=== PATIENT | female | born 1960 | race African-American/Black ===

== ENCOUNTER 2017-06-20 13:50 | Inpatient (IN) ==
[2017-06-21] MEDS ORDERED: *HR* OxyCODONE Immed Rel 5 MG TABLET PO PRN (11:32)
--- NOTE | 2017-06-21 13:27 | Internal Med History&Physical ---
Date of Encounter: 06/21/17 Time of Encounter: 13:27 Assessment and Plan (1) Status post total hip replacement, right Current visit: No Status: Acute She is clinically stable and we will resume ambulation with the addition of therapies, consult physical medicine, follow clinically. (2) HTN (hypertension) Current visit: No Status: Chronic Clinically stable. We will continue home regimen and follow. Qualifiers: Hypertension type: essential hypertension Qualified Code(s): I10 - Essential (primary) hypertension (3) Acute blood loss anemia Current visit: No Status: Acute We will follow (4) Flu Current visit: No Status: Acute We will keep in respiratory isolation for the next 5-7 days, if hospitalized, and follow clinically. Internal Medicine - H&P: HPI Admitted From: Intrahospital Transfer Plans for Post Hospital Care: Home History of present illness: Ms. Burden is a 56 year old female status post right total hip replacement on at [facility] in [place], by Dr. rodriguez. Surgery was complicated in recovery phase by development of fever on the first postoperative day. She was found to have influenza. She also became anemic and received 2 units of packed red blood cells, yesterday. She is feeling otherwise postoperatively stable without complaints. She notes minimal cough and minimal other respiratory symptoms, postoperatively. She has been using incentive spirometry. She denies sore throat. She does admit to diaphoresis, this morning only. She had a left knee arthroscopy a few months ago and this was relatively unremarkable. She has no significant past surgical history, otherwise. She has an upper partial plate denture. Past Med Surg Social Fam HX - Past Medical History Medical history: arthritis, hypertension Psychiatric history: no psych history - Past Surgical History Surgical History: other - Social History Smoking Status: Never smoker Smokeless Tobacco Status: No Alcohol use: none, occasionally Drug use: none Occupational status: employed Current living situation: Home - Independent Exposure or Possible Exposure to Illness During Travel: No Additional social history: She works as a business transformation manager and lives alone after she is . - Family History Mother Living Status: Hx Family Cancer: Yes Internal Medicine - H&P: Meds Amlodipine Besylate 10 mg PO DAILY 04/09/17 [History] Ascorbic Acid [Vitamin C] 500 mg PO DAILY 04/09/17 [History] Cyanocobalamin (Vitamin B-12) [Vitamin B-12] 500 mcg PO DAILY 04/09/17 [History] Labetalol [Trandate] 100 mg PO BID 04/09/17 [History] Lisinopril [Zestril] 40 mg PO DAILY 04/09/17 [History] hydroCHLOROthiazide [Hydrochlorothiazide] 12.5 mg PO DAILY 04/09/17 [History] Aspirin Enteric Coated [Aspirin EC] 325 mg PO BID #20 tablet. 06/15/17 [Rx] OxyCODONE Immed Rel [Roxicodone 5 MG] 5 mg PO Q6HR PRN 7 Days #28 tablet [Rx] Cholecalciferol (D-3) [Vitamin D] 1,000 unit PO DAILY 06/18/17 [History] Oseltamivir [Tamiflu] 75 mg PO BID capsule 06/20/17 [Rx] 3 Allergy/AdvReac Type Severity Reaction Status Date / Time No Known Allergies Allergy Verified 06/18/17 08:55 All Systems PM: A 10-system review of systems was performed and is negative for pertinent findings except as documented above in the HPI. - Constitutional Exam: Examinatioin: (Except as mentioned above): General: In no apparent distress, alert and oriented 3. Head: Atraumatic and normocephalic. Eyes: Extraocular muscles are intact, pupils equal round and reactive to light and accommodation. Sclerae anicteric. Ears: External ears are normal to inspection and hearing is grossly normal. Nose: Patent without lesion noted. Mouth: No intraoral lesions seen. Dentition is unremarkable. Upper plate partial denture as noted. Neck: Supple with trachea midline. There is no thyromegaly or adenopathy and carotids are 2+ without bruit heard. Respiratory: No use of accessory muscles. Lungs are clear throughout. Normal airflow. Cardiovascular: Regular rate and rhythm with a grade 1-2/6 systolic murmur heard only at the right second intercostal space. Abdomen: Bowel sounds are normal. No hepatosplenomegaly masses or tenderness. Obese and therefore difficult to palpate deeply. Extremities: No cyanosis clubbing or edema. Surgical wound and dressing are intact and dry. Neurological: A and O 3. Cranial nerves II through XII are intact. No focal deficits and no abnormal movements or postures. Distal neurovascular function is intact on the right lower extremity. Skin: Warm and non-diaphoretic with no lesions noted. Surgical incision is dressed with some localized edema but no ecchymosis or drainage. No significant warmth. Breasts, pelvic and rectal: Not examined.
[2017-06-21] MEDS: *HR* OxyCODONE Immed Rel 5 MG TABLET PO PRN ×2 (13:42→20:37)
[2017-06-21] MEDS ORDERED: cloNIDine HCl 0.1 MG TABLET PO PRN (18:03)
[2017-06-22] MEDS: *HR* OxyCODONE Immed Rel 5 MG TABLET PO PRN ×6 (00:26→22:38)
[2017-06-22] MEDS: *HR* Enoxaparin 40 MG/0.4 ML SYRINGE SQ SCH (04:26)
[2017-06-22 05:01] LABS: Basophils % 0.2 %; Eosinophils # 0.4 K/mcL (0.0-0.6); Eosinophils % 3.8 %; Hematocrit 25.5 % (35.3-44.9); Hemoglobin 8.5 g/dL (11.5-15.4); Immature Granulocytes % 0.7 % (0-4); Lymphocytes # 2.3 K/mcL (0.6-4.6); Lymphocytes % 25.5 %; Mean Corpuscular HGB Conc 33.3 g/dL (31.6-35.5); Mean Corpuscular Hemoglobin 28.7 pg (28.0-33.3); Mean Corpuscular Volume 86.1 fL (83.0-100.0); Mean Platelet Volume 9.6 fL (9.4-12.4); Monocytes % 10.5 %; Neutrophils # 5.4 K/mcL (1.6-8.9); Platelet Count 227 K/mcL (140-400); Red Blood Count 2.96 M/mcL (3.82-4.97); Red Cell Distribution Width 13.5 % (11.5-14.5); Segmented Neutrophils % 59.3 %
[2017-06-22 05:24] LABS: BUN/Creatinine Ratio 17 (6-26); Blood Urea Nitrogen 19 mg/dL (6-20); Calcium 8.7 mg/dL (8.6-10.3); Carbon Dioxide 28 mEq/L (23-29); Chloride 100 mEq/L (98-107); Glucose 108 mg/dL (70-105); Osmolality,Calculated 283 (280-300); Potassium 3.3 mEq/L (3.5-5.1); Sodium 135 mEq/L (136-145); eGFR For African Americans > 60 (> 60); eGFR For Non-African Americans 52 (> 60)
[2017-06-22] MEDS: hydroCHLOROthiazide 25 MG TABLET PO SCH (08:31)
[2017-06-22] MEDS: amLODIPine 5 MG TABLET PO SCH (08:31)
[2017-06-22] MEDS: Lisinopril 20 MG TABLET PO SCH (08:31)
[2017-06-22] MEDS: Aspirin 81 MG TAB.CHEW PO SCH (08:32)
[2017-06-22] MEDS: Cyanocobalamin (B-12) 1,000 MCG TABLET PO SCH (08:32)
[2017-06-22] MEDS: Cholecalciferol (D-3) 1,000 UNIT TABLET PO SCH (08:32)
--- NOTE | 2017-06-22 13:58 | Internal Med Progress Note ---
Date of Encounter: 06/22/17 Time of Encounter: 13:56 - Assessment and plan (1) Status post total hip replacement, right Current Visit: No Status: Acute Assessment and plan: See the symptomatic update above. For this reason, we will add a muscle relaxant, baclofen. I have explained to her the possibility of fatigue and/or mental loss of clarity from this and said we would simply discontinue if this does not help. She understands. Therapies to resume tomorrow. (2) HTN (hypertension) Current Visit: No Status: Chronic Assessment and plan: Clinically stable. We will continue home regimen and follow. Qualifiers: Hypertension type: essential hypertension Qualified Code(s): I10 - Essential (primary) hypertension (3) Acute blood loss anemia Current Visit: No Status: Acute Assessment and plan: Hemoglobin is relatively stable and she is essentially asymptomatic at this point. We will continue to follow and is to have another hemoglobin in the morning. (4) Flu Current Visit: No Status: Acute Assessment and plan: Clinically resolved but will keep her in isolation to protect guests and staff, for at least a few days. She should have 3 or 4 more days of Tamiflu per previous orders. (5) Hypokalemia Current Visit: Yes Status: Acute Assessment and plan: Will supplement, check magnesium, follow. - Subjective Interval history: Patient had a relatively severe night with pain, last evening. Discussed with nursing and patient. To summarize: We will try Tylenol in addition to the oxycodone. If current regimen is not successful in keeping her pain minimal last, will increased to 1-2 every 4 hours, when necessary pain She continues to use her incentive spirometer. She has no other interval complaints. Patient has no complaint of chest discomfort, dyspnea, orthopnea, palpitations, nausea or vomiting, constipation or diarrhea, other changes in bowel habits, difficulty with urination, rash or itching, or other new complaints, except as mentioned above. Review of systems is otherwise unremarkable. - Constitutional Vitals: Temp Pulse Resp BP Pulse Ox 98.7 F 90 18 126/76 97 06/22/17 12:00 06/22/17 12:00 06/22/17 12:00 06/22/17 12:00 06/22/17 12:00 Exam: Examinatioin: (Except as mentioned above): General: In no apparent distress. Alert and oriented 3. Nondiaphoretic. Head: Atraumatic and normocephalic. Respiratory: No use of accessory muscles. Lungs are clear throughout. Normal airflow. Cardiovascular: Regular rate and rhythm without murmur appreciated. Abdomen: Bowel sounds are normal. No hepatosplenomegaly mass or tenderness appreciated. Extremities: No cyanosis clubbing or edema. She has persistent edema in the right, surgical, hip. This is somewhat tender in the area and this is probably consistent with extravasation and her history of blood loss anemia. However, I believe she also has anterior quad tenderness consistent with palpable spasm. Skin: Warm and non-diaphoretic with no new lesions noted. Internal Medicine: Result - Labs CBC & Chem 7: 06/22/17 04:26 06/22/17 04:26 Labs: Short CBC 06/22/17 Range/Units 04:26 WBC 9.1 (4.3-11.1) K/mcL Hgb 8.5 L (11.5-15.4) g/dL Hct 25.5 L (35.3-44.9) % Plt Count 227 (140-400) K/mcL Neutrophils # 5.4 (1.6-8.9) K/mcL BMP 06/22/17 04:26 Sodium 135 L Potassium 3.3 L Chloride 100 Carbon Dioxide 28 BUN 19 Creatinine 1.09 Glucose 108 H Calcium 8.7 Consult Discharge Plan - Plan Referrals: Lashell Cabrera CNP [Primary Care Provider] - Arleth Wiggins MD [Family Provider] -
[2017-06-22] MEDS ORDERED: Baclofen 10 MG TABLET PO PRN (16:19)
[2017-06-22] MEDS ORDERED: *HR* OxyCODONE Immed Rel 5 MG TABLET PO PRN (19:22)
[2017-06-23] MEDS: *HR* Enoxaparin 40 MG/0.4 ML SYRINGE SQ SCH (06:24)
[2017-06-23] MEDS: *HR* OxyCODONE Immed Rel 5 MG TABLET PO PRN ×4 (06:24→20:30)
[2017-06-23] MEDS: Lisinopril 20 MG TABLET PO SCH (08:29)
[2017-06-23] MEDS: Aspirin 81 MG TAB.CHEW PO SCH (08:29)
[2017-06-23] MEDS: hydroCHLOROthiazide 25 MG TABLET PO SCH (08:30)
[2017-06-23] MEDS: amLODIPine 5 MG TABLET PO SCH (08:31)
[2017-06-23] MEDS: Cyanocobalamin (B-12) 1,000 MCG TABLET PO SCH (08:31)
[2017-06-23] MEDS: Cholecalciferol (D-3) 1,000 UNIT TABLET PO SCH (08:31)
--- NOTE | 2017-06-23 11:31 | Internal Med Progress Note ---
Date of Encounter: 06/23/17 Time of Encounter: 11:28 - Assessment and plan (1) Status post total hip replacement, right Current Visit: No Status: Acute Assessment and plan: Continue PT\OT. Will follow progress. Continue oxycodone for pain control. Follow up with ortho as scheduled. (2) HTN (hypertension) Current Visit: No Status: Chronic Assessment and plan: Controlled with current medications. Will monitor blood pressure. Qualifiers: Hypertension type: essential hypertension Qualified Code(s): I10 - Essential (primary) hypertension (3) Flu Current Visit: No Status: Acute Assessment and plan: Patient is asymptomatic. No fever. Continue Tamiflu (4) Acute blood loss anemia Current Visit: No Status: Acute Assessment and plan: Hemoglobin 8.5. Will continue to monitor. (5) Hypokalemia Current Visit: Yes Status: Acute Assessment and plan: Potassium 3.3 yesterday PO supplement added. Will monitor labs tomorrow. - Time Spent With Patient less than 15 minutes - Subjective Interval history: Participating well with therapy. Pain control with oxycodone. Continues to be on Tamiflu for positive influenza A. Denies any symptoms, fever, chills, nausea , vomiting, diarrhea, shortness of breath or cough. Denies any further complaints at this time. - Constitutional Vitals: Temp Pulse Resp BP Pulse Ox 98.6 F 86 16 109/76 97 06/23/17 07:00 06/23/17 07:00 06/23/17 07:00 06/23/17 07:00 06/23/17 07:00 General appearance: Present: A&O X 3, pleasant, no acute distress, answers questions appropriately - Head Head exam: Present: atraumatic, normocephalic - Eye Eye exam: Present: PERRL, conjuntiva pink, sclera anicteric Pupils: Present: PERRL - Neck Neck exam general surgery: Present: supple, trachea midline. Absent: lymphadenopathy - Respiratory Respiratory exam: Present: CTAB. Absent: accessory muscle use, rales, rhonchi, wheezes - Cardiovascular Cardiovascular exam: Present: RRR, +S1, +S2. Absent: diastolic murmur, gallop, rubs, systolic murmur - GI/Abdominal GI/Abdominal exam: Present: normal bowel sounds, soft, no peritoneal signs. Absent: distended, tenderness - Extremities Exam Extremities exam: Present: warm, radial pulses palpable and symmetrical. Absent : calf tenderness, cyanotic, pedal edema - Neurological Exam Neurological exam: Present: CN II-XII intact, oriented X3, no focal deficits. Absent: pronater drift, facial droop, speech deficit - Skin Skin exam: Present: dry, intact Additional comments: Right hip incision dressing dry and intact. Slight edema to surrounding area. No signs of infection. Internal Medicine: Result - Labs CBC & Chem 7: 06/22/17 04:26 06/22/17 04:26 Consult Discharge Plan - Plan Referrals: Lashell Cabrera CNP [Primary Care Provider] - Arleth Wiggins MD [Family Provider] -
--- NOTE | 2017-06-23 20:12 | Physcial Medicine-Consult Note ---
Date of Encounter: 06/23/17 Time of Encounter: 15:50 Physical Medicine - AP (1) Status post total hip replacement, right Status: Acute Assessment and plan: Doing well on rehab. Continue current therapies. Compression hose for edema and DVT prophylaxis. Code(s): Z96.641 - Presence of right artificial hip joint SNOMED Code(s): 036842386661 Physical Medicine - HPI - Data of Consult Requesting Physician: Giuseppe Hansen MD Primary Care Provider: Lashell Cabrera, Family Provider: Arleth Wiggins - Consult Narrative History of present illness: Ms. Burden is a 56 year old right handed female admitted 06-18-2017 for elective right total hip replacement. Post op she had Influenza A and anemia requiring transfusion. CC: Giuseppe Hansen MD Past Med Surg Social Fam HX - Past Medical History Attestation: Yes The following information was validated with the patient. Medical history: arthritis, hypertension Psychiatric history: no psych history - Past Surgical History Surgical History: other - Social History Smoking Status: Never smoker Smokeless Tobacco Status: No Alcohol use: none, occasionally Drug use: none - Family History Mother Living Status: Hx Family Cancer: Yes Medications and Allergies Amlodipine Besylate 10 mg PO DAILY 04/09/17 [History] Ascorbic Acid [Vitamin C] 500 mg PO DAILY 04/09/17 [History] Cyanocobalamin (Vitamin B-12) [Vitamin B-12] 500 mcg PO DAILY 04/09/17 [History] Labetalol [Trandate] 100 mg PO BID 04/09/17 [History] Lisinopril [Zestril] 40 mg PO DAILY 04/09/17 [History] hydroCHLOROthiazide [Hydrochlorothiazide] 12.5 mg PO DAILY 04/09/17 [History] Aspirin Enteric Coated [Aspirin EC] 325 mg PO BID #20 tablet. 06/15/17 [Rx] OxyCODONE Immed Rel [Roxicodone 5 MG] 5 mg PO Q6HR PRN 7 Days #28 tablet [Rx] Cholecalciferol (D-3) [Vitamin D] 1,000 unit PO DAILY 06/18/17 [History] Oseltamivir [Tamiflu] 75 mg PO BID capsule 06/20/17 [Rx] 3 Allergy/AdvReac Type Severity Reaction Status Date / Time No Known Allergies Allergy Verified 06/18/17 08:55 All systems: reviewed and no additional remarkable complaints except as stated ( Hip pain) Physical Medicine - Exam - Constitutional Vitals: Temp Pulse Resp BP Pulse Ox 99.7 F H 104 16 120/81 97 06/23/17 19:00 06/23/17 19:00 06/23/17 19:00 06/23/17 19:00 06/23/17 19:00 - Head Head exam: Present: atraumatic, normocephalic - Eye Eye exam: Present: EOMI - ENT ENT exam: Present: mucous membranes moist - Neck Neck exam: Present: full ROM - Respiratory Respiratory exam: Present: CTAB - Cardiovascular Cardiovascular exam: Present: RRR - GI/Abdominal GI/Abdominal exam: Present: normal bowel sounds - Extremities Exam Extremities exam: Present: pedal edema Additional comments: Good distal LE strength. Right hip limited exam. 2+edema RLE. No calf pain to palpation. - Neurological Exam Neurological exam: Present: alert, oriented X3 Additional comments: Sensation intact. - Psychiatric Psychiatric exam: Present: normal affect, normal mood - Skin Additional comments: Right hip incision CDI Physical Medicine - Results - Labs CBC & Chem 7: 06/22/17 04:26 06/22/17 04:26 Labs: Anemia, Hyponatremia, Hypokalemia Consult Discharge Plan - Plan Referrals: Lashell Cabrera CNP [Primary Care Provider] - Arleth Wiggins MD [Family Provider] -
[2017-06-24] MEDS: *HR* OxyCODONE Immed Rel 5 MG TABLET PO PRN ×5 (01:38→22:36)
[2017-06-24] MEDS: *HR* Enoxaparin 40 MG/0.4 ML SYRINGE SQ SCH (06:06)
[2017-06-24 06:44] LABS: Basophils % 0.3 %; Eosinophils # 0.3 K/mcL (0.0-0.6); Eosinophils % 2.8 %; Hematocrit 25.7 % (35.3-44.9); Hemoglobin 8.7 g/dL (11.5-15.4); Lymphocytes # 1.8 K/mcL (0.6-4.6); Lymphocytes % 19.8 %; Mean Corpuscular HGB Conc 33.9 g/dL (31.6-35.5); Mean Corpuscular Hemoglobin 29.3 pg (28.0-33.3); Mean Corpuscular Volume 86.5 fL (83.0-100.0); Mean Platelet Volume 9.1 fL (9.4-12.4); Monocytes % 11.1 %; Platelet Count 287 K/mcL (140-400); Red Blood Count 2.97 M/mcL (3.82-4.97); Red Cell Distribution Width 13.4 % (11.5-14.5)
[2017-06-24 07:00] LABS: BUN/Creatinine Ratio 20 (6-26); Blood Urea Nitrogen 20 mg/dL (6-20); Calcium 8.9 mg/dL (8.6-10.3); Carbon Dioxide 28 mEq/L (23-29); Chloride 102 mEq/L (98-107); Glucose 103 mg/dL (70-105); Osmolality,Calculated 285 (280-300); Sodium 136 mEq/L (136-145); eGFR For African Americans > 60 (> 60); eGFR For Non-African Americans 58 (> 60)
--- NOTE | 2017-06-24 07:45 | Internal Med Progress Note ---
Date of Encounter: 06/24/17 Time of Encounter: 07:43 - Assessment and plan (1) Status post total hip replacement, right Current Visit: No Status: Acute Assessment and plan: Continues to improve and proceeding well with therapies. We will continue as planned.. (2) HTN (hypertension) Current Visit: No Status: Chronic Assessment and plan: Clinically stable. We will continue home regimen and follow. Qualifiers: Hypertension type: essential hypertension Qualified Code(s): I10 - Essential (primary) hypertension (3) Acute blood loss anemia Current Visit: No Status: Acute Assessment and plan: Hemoglobin is stable and she is symptomatically stable, as well. (4) Flu Current Visit: No Status: Acute Assessment and plan: She feels that she has symptomatically resolved but we will continue her in isolation for protection of staff and other patients.. (5) Hypokalemia Current Visit: Yes Status: Acute Assessment and plan: Resolved. - Time Spent With Patient 25 - 35 minutes - Subjective Interval history: Slept well without any difficulties, overnight. Moving her bowels daily. Still with some pain but this is steadily improving. She has no other complaints. Patient has no complaint of chest discomfort, dyspnea, orthopnea, palpitations, nausea or vomiting, constipation or diarrhea, other changes in bowel habits, difficulty with urination, rash or itching, or other new complaints, except as mentioned above. Review of systems is otherwise unremarkable. - Constitutional Vitals: Temp Pulse Resp BP Pulse Ox 98.3 F 89 18 125/86 97 06/24/17 07:00 06/24/17 07:00 06/24/17 07:00 06/24/17 07:00 06/24/17 07:00 General appearance: Present: A&O X 3, pleasant, no acute distress, answers questions appropriately Exam: Examinatioin: (Except as mentioned above): General: In no apparent distress. Alert and oriented 3. Nondiaphoretic. Head: Atraumatic and normocephalic. Respiratory: No use of accessory muscles. Lungs are clear throughout. Normal airflow. Cardiovascular: Regular rate and rhythm without murmur appreciated. Abdomen: Bowel sounds are normal. No hepatosplenomegaly mass or tenderness appreciated. Extremities: No cyanosis clubbing or edema at the feet or calves but still with some swelling around the operative site. Warm but not excessively and no drainage is noted. Skin: Warm and non-diaphoretic with no new lesions noted. Internal Medicine: Result - Labs CBC & Chem 7: 06/24/17 06:31 06/24/17 06:31 Labs: Short CBC 06/24/17 Range/Units 06:31 WBC 9.2 (4.3-11.1) K/mcL Hgb 8.7 L (11.5-15.4) g/dL Hct 25.7 L (35.3-44.9) % Plt Count 287 (140-400) K/mcL Neutrophils # 6.0 (1.6-8.9) K/mcL BMP 06/24/17 06:31 Sodium 136 Potassium 4.0 Chloride 102 Carbon Dioxide 28 BUN 20 Creatinine 0.99 Glucose 103 Calcium 8.9 Consult Discharge Plan - Plan Referrals: Lashell Cabrera CNP [Primary Care Provider] - Arleth Wiggins MD [Family Provider] -
[2017-06-24] MEDS: amLODIPine 5 MG TABLET PO SCH (08:07)
[2017-06-24] MEDS: Cyanocobalamin (B-12) 1,000 MCG TABLET PO SCH (08:07)
[2017-06-24] MEDS: hydroCHLOROthiazide 25 MG TABLET PO SCH (08:08)
[2017-06-24] MEDS: Aspirin 81 MG TAB.CHEW PO SCH (08:09)
[2017-06-24] MEDS: Lisinopril 20 MG TABLET PO SCH (08:09)
[2017-06-24] MEDS: Cholecalciferol (D-3) 1,000 UNIT TABLET PO SCH (08:09)
[2017-06-25] MEDS: *HR* OxyCODONE Immed Rel 5 MG TABLET PO PRN ×4 (03:53→20:01)
[2017-06-25] MEDS: *HR* Enoxaparin 40 MG/0.4 ML SYRINGE SQ SCH (03:53)
[2017-06-25] MEDS: Lisinopril 20 MG TABLET PO SCH (08:52)
[2017-06-25] MEDS: amLODIPine 5 MG TABLET PO SCH (08:52)
[2017-06-25] MEDS: hydroCHLOROthiazide 25 MG TABLET PO SCH (08:53)
[2017-06-25] MEDS: Cholecalciferol (D-3) 1,000 UNIT TABLET PO SCH (08:53)
[2017-06-25] MEDS: Aspirin 81 MG TAB.CHEW PO SCH (08:53)
[2017-06-25] MEDS: Cyanocobalamin (B-12) 1,000 MCG TABLET PO SCH (08:54)
--- NOTE | 2017-06-25 11:26 | Internal Med Progress Note ---
Date of Encounter: 06/25/17 Time of Encounter: 11:24 - Assessment and plan (1) Status post total hip replacement, right Current Visit: No Status: Acute Assessment and plan: Continue PT\OT. Will follow progress. Continue oxycodone for pain control. Follow up with ortho as scheduled. (2) HTN (hypertension) Current Visit: No Status: Chronic Assessment and plan: Controlled with current medications. Will monitor blood pressure. Qualifiers: Hypertension type: essential hypertension Qualified Code(s): I10 - Essential (primary) hypertension (3) Acute blood loss anemia Current Visit: No Status: Acute Assessment and plan: Hemoglobin 8.7. Stable and slowly improving. Will continue to monitor. - Time Spent With Patient less than 15 minutes - Subjective Interval history: Participating well with therapy. Pain control with oxycodone. Nursing reports right outer ankle swelling. Patient denies pain or injury. Patient believes that it is due to positioning at night. Wearing [place] hose and taking Lovenox. Denies any symptoms, fever, chills, nausea, vomiting, diarrhea, shortness of breath or cough. Denies any further complaints at this time. Bowels moving as normal. Maintaining appetite and hydration. - Constitutional Vitals: Temp Pulse Resp BP Pulse Ox 99.1 F 87 18 129/80 96 06/25/17 07:36 06/25/17 07:36 06/25/17 07:36 06/25/17 07:36 06/25/17 07:36 General appearance: Present: A&O X 3, pleasant, no acute distress, answers questions appropriately - Head Head exam: Present: atraumatic, normocephalic - Eye Eye exam: Present: PERRL, conjuntiva pink, sclera anicteric Pupils: Present: PERRL - Neck Neck exam general surgery: Present: supple, trachea midline. Absent: lymphadenopathy - Respiratory Respiratory exam: Present: CTAB. Absent: accessory muscle use, rales, rhonchi, wheezes - Cardiovascular Cardiovascular exam: Present: RRR, +S1, +S2. Absent: diastolic murmur, gallop, rubs, systolic murmur - GI/Abdominal GI/Abdominal exam: Present: normal bowel sounds, soft, no peritoneal signs. Absent: distended, tenderness - Extremities Exam Extremities exam: Present: warm, radial pulses palpable and symmetrical. Absent : calf tenderness, cyanotic, pedal edema Additional comments: Right outer ankle slightly swollen. Denies pain or injury. - Neurological Exam Neurological exam: Present: CN II-XII intact, oriented X3, no focal deficits. Absent: pronater drift, facial droop, speech deficit - Skin Skin exam: Present: dry, intact Additional comments: Right hip incision well approximated. No drainage. Slight swelling to surrounding area. Dressing dry and intact. Internal Medicine: Result - Labs CBC & Chem 7: 06/24/17 06:31 06/24/17 06:31 - VTE Documentation of Mechanical Device: Graduated compression elastic hosiery Consult Discharge Plan - Plan Referrals: Lashell Cabrera CNP [Primary Care Provider] - Iman Houser, PAC [Physician Land Commissioner] - 07/03/17 2:00 pm (follow up for hip surgery) Arleth Wiggins MD [Family Provider] -
[2017-06-26] MEDS: *HR* OxyCODONE Immed Rel 5 MG TABLET PO PRN ×5 (02:15→20:44)
[2017-06-26] MEDS: *HR* Enoxaparin 40 MG/0.4 ML SYRINGE SQ SCH (06:07)
[2017-06-26] MEDS: Cholecalciferol (D-3) 1,000 UNIT TABLET PO SCH (10:40)
[2017-06-26] MEDS: amLODIPine 5 MG TABLET PO SCH (10:41)
[2017-06-26] MEDS: Lisinopril 20 MG TABLET PO SCH (10:41)
[2017-06-26] MEDS: hydroCHLOROthiazide 25 MG TABLET PO SCH (10:41)
[2017-06-26] MEDS: Aspirin 81 MG TAB.CHEW PO SCH (10:41)
[2017-06-26] MEDS: Cyanocobalamin (B-12) 1,000 MCG TABLET PO SCH (10:42)
--- NOTE | 2017-06-26 14:24 | Internal Med Progress Note ---
Date of Encounter: 06/26/17 Time of Encounter: 14:30 - Assessment and plan (1) Status post total hip replacement, right Current Visit: No Status: Acute Assessment and plan: Anticipated discharge, tomorrow. Advised topical ice for spasm, as above. I advised that she use a muscle relaxant prior to bedtime and that if she is not doing anything in terms of complex or dangerous behavior and not driving, she could combine muscle relaxant with pain medication, as needed, at night. (2) HTN (hypertension) Current Visit: No Status: Chronic Assessment and plan: Clinically stable. We will continue home regimen and follow. Qualifiers: Hypertension type: essential hypertension Qualified Code(s): I10 - Essential (primary) hypertension (3) Acute blood loss anemia Current Visit: No Status: Acute Assessment and plan: Hemoglobin is stable and she is symptomatically stable, as well. We will continue to follow. I told her that her intermittent heart murmur is likely a flow murmur but should be followed with her primary care physician. She understands that this is likely related to her anemia. (4) Flu Current Visit: No Status: Acute Assessment and plan: Resolved and she has been removed from respiratory isolation, has completed Tamiflu. (5) Hypokalemia Current Visit: Yes Status: Acute Assessment and plan: Resolved. - Time Spent With Patient 25 - 35 minutes - Subjective Interval history: Slept well without any difficulties, overnight. Moving her bowels daily. Still with some pain but this is steadily improving. She is concerned about minimal right ankle edema and the persistent edema around her upper thigh. We discussed her spasm in her quadriceps, again. I advised topical ice or trial of heat. She has no other complaints. Patient has no complaint of chest discomfort, dyspnea, orthopnea, palpitations, nausea or vomiting, constipation or diarrhea, other changes in bowel habits, difficulty with urination, rash or itching, or other new complaints, except as mentioned above. Review of systems is otherwise unremarkable. - Constitutional Vitals: Temp Pulse Resp BP Pulse Ox 98.2 F 75 17 116/75 97 06/26/17 07:41 06/26/17 07:41 06/26/17 07:41 06/26/17 07:41 06/26/17 07:41 General appearance: Present: A&O X 3, pleasant, no acute distress, answers questions appropriately Exam: Examinatioin: (Except as mentioned above): General: In no apparent distress. Alert and oriented 3. Nondiaphoretic. Head: Atraumatic and normocephalic. Respiratory: No use of accessory muscles. Lungs are clear throughout. Normal airflow. Cardiovascular: Regular rate and rhythm with a grade 1 to 2/6 systolic murmur heard only at the left lower sternal border. Abdomen: Bowel sounds are normal. No hepatosplenomegaly mass or tenderness appreciated. . Extremities: No cyanosis clubbing or edema. As per subjective, has minimal right ankle edema. Essentially none at foot or lower calf. There is no cord or calf tenderness. Edema persists around the upper thigh and at incision but no erythema or warmth to suggest cellulitis. Quadriceps is still tight with palpable spasm. Skin: Warm and non-diaphoretic with no new lesions noted. Internal Medicine: Result - Labs CBC & Chem 7: 06/24/17 06:31 06/24/17 06:31 - Impressions Impressions Hip X-Ray 06/25/17 17:16 IMPRESSION: No acute osseous abnormality of the pelvis or right hip. Stable changes of previous right hip arthroplasty. D/ / Aquilino Spencer MD / Aquilino Spencer MD Interpreting Provider: Aquilino Spencer MD - VTE Documentation of Mechanical Device: Graduated compression elastic hosiery Consult Discharge Plan - Plan Referrals: Lashell Cabrera CNP [Primary Care Provider] - Iman Houser PAC [Physician Psychological Tests Sales Agent] - 07/03/17 2:00 pm (follow up for hip surgery) Arleth Wiggins MD [Family Provider] -
[2017-06-27] MEDS: *HR* OxyCODONE Immed Rel 5 MG TABLET PO PRN ×2 (03:04→08:01)
[2017-06-27] MEDS: *HR* Enoxaparin 40 MG/0.4 ML SYRINGE SQ SCH (06:04)
[2017-06-27 07:53] VITALS: BP 136/88
[2017-06-27] MEDS: Lisinopril 20 MG TABLET PO SCH (08:01)
[2017-06-27] MEDS: amLODIPine 5 MG TABLET PO SCH (08:02)
[2017-06-27] MEDS: hydroCHLOROthiazide 25 MG TABLET PO SCH (08:02)
[2017-06-27] MEDS: Aspirin 81 MG TAB.CHEW PO SCH (08:02)
[2017-06-27] MEDS: Cyanocobalamin (B-12) 1,000 MCG TABLET PO SCH (08:02)
[2017-06-27] MEDS: Cholecalciferol (D-3) 1,000 UNIT TABLET PO SCH (08:02)
--- NOTE | 2017-06-27 09:35 | Discharge Summary ---
Date of Encounter: 06/27/17 Time of Encounter: 09:32 - Discharge Diagnosis (1) Arthritis of right hip Priority: Primary Status: Chronic Comments: No acute issues during stable facility. Patient to physical therapy and progressed well. Right hip surgical dressing dressing is dry and intact with surgical incision intact and healing well. Patient states pain has been well managed with current oral medications. Patient to be discharged on current medications has follow-up with orthopedics as planned. (2) HTN (hypertension) Priority: Secondary Status: Chronic Comments: Vital signs were stable. Patient to continue on current medications at home. Qualifiers: Hypertension type: essential hypertension Qualified Code(s): I10 - Essential (primary) hypertension (3) Acute blood loss anemia Priority: Secondary Status: Acute Comments: Patient had postsurgical blood loss with most recent hemoglobin at 8.7. Patient remains asymptomatic. Patient to follow up with PCP for labs in 2 week. Hospital course: Ms. Burden is a 56 year old female who had a right total hip replacement. Patient had a uneventful recovery at Hospital was transferred to this facility for further rehabilitation due to unsteady gait. Patient has progressed well with physical therapy while at this facility. No acute issues occurred and patient currently is being discharged with no complaints. Patient experienced slight postsurgical anemia but has remained stable with recent hemoglobin 3.7. Patient continues to have unsteady gait and ambulates with walker without difficulties. Her pain is minimal managed with oral medications Discharge discussed with: patient - Time Spent with Patient Total time spent providing and/or coordinating discharge services: Less than 30 minutes - Discharge Medications Home Medications: Amlodipine Besylate 10 mg PO DAILY 04/09/17 [History] Ascorbic Acid [Vitamin C] 500 mg PO DAILY 04/09/17 [History] Cyanocobalamin (Vitamin B-12) [Vitamin B-12] 500 mcg PO DAILY 04/09/17 [History] Labetalol [Trandate] 100 mg PO BID 04/09/17 [History] Lisinopril [Zestril] 40 mg PO DAILY 04/09/17 [History] hydroCHLOROthiazide [Hydrochlorothiazide] 12.5 mg PO DAILY 04/09/17 [History] Aspirin Enteric Coated [Aspirin EC] 325 mg PO BID #20 tablet. 06/15/17 [Rx] OxyCODONE Immed Rel [Roxicodone 5 MG] 5 mg PO Q6HR PRN 7 Days #28 tablet [Rx] Cholecalciferol (D-3) [Vitamin D] 1,000 unit PO DAILY 06/18/17 [History] Oseltamivir [Tamiflu] 75 mg PO BID capsule 06/20/17 [Rx] Allergies/Adverse Reactions: 3 Allergy/AdvReac Type Severity Reaction Status Date / Time No Known Allergies Allergy Verified 06/18/17 08:55 Date of admission: 06/21/17 10:36 Primary care physician: Lashell Cabrera, Consults: 06/21/17 11:06 Consult to Occupational Therapy [CONS] Routine Comment: Evaluate, develop and implement POC Reason for Consult: eval Does patient have active BEDREST order?: No Is patient medically & hemodynamically stable?: Yes Consult to Physical Medicine/Rehab [CONS] Routine Reason for Consult: admit to rehab left hip replacement Call Completed: No Consult to Physical Therapy [CONS] Routine Comment: Evaluate, develop and implement POC Reason for Consult: eval Does patient have active BEDREST order?: No Is patient medically & hemodynamically stable?: Yes Consult to [employer] Lock[employer]ch [CONS] Routine Reason for SW Consult: d/c planning Discharging clinician: Giuseppe Hansen - Constitutional Vitals: Temp Pulse Resp BP Pulse Ox 98.2 F 86 18 136/88 94 06/27/17 07:50 06/27/17 07:50 06/27/17 07:50 06/27/17 07:50 06/27/17 07:50 General appearance: Present: A&O X 3, pleasant, no acute distress, answers questions appropriately - Head Head exam: Present: atraumatic, normocephalic - Eye Eye exam: Present: PERRL, conjuntiva pink, sclera anicteric Pupils: Present: PERRL - Neck Neck exam general surgery: Present: supple, trachea midline. Absent: lymphadenopathy - Respiratory Respiratory exam: Present: CTAB. Absent: accessory muscle use, rales, rhonchi, wheezes - Cardiovascular Cardiovascular exam: Present: RRR, +S1, +S2. Absent: diastolic murmur, gallop, rubs, systolic murmur - GI/Abdominal GI/Abdominal exam: Present: normal bowel sounds, soft, no peritoneal signs. Absent: distended, tenderness - Extremities Exam Extremities exam: Present: warm, radial pulses palpable and symmetrical. Absent : calf tenderness, cyanotic, pedal edema Additional comments: Right hip surgical incision appears dry and intact with dressing clean. No deformity or injury noted to the right hip - Neurological Exam Neurological exam: Present: CN II-XII intact, oriented X3, no focal deficits. Absent: pronater drift, facial droop, speech deficit - Skin Skin exam: Present: dry, intact - Patient Status Disposition: Home, Self-Care Condition: Good Functional capacity at discharge: uses cane/walker Overall status at discharge: patient is progressing back to baseline - Discharge Instructions Follow Up With: Lashell Cabrera, GILDARDO [Primary Care Provider] - Iman Houser PAC [Physician Stapler Machine] - 07/03/17 2:00 pm (follow up for hip surgery) Arleth Wiggins MD [Family Provider] - - Diet and Activity Activity: ambulate only with your walker, as per physical therapy, increase activity as tolerated, resume usual activities as tolerated Diet: advance to your usual diet - VTE Documentation of Mechanical Device: Graduated compression elastic hosiery
== END 2017-06-27 12:00 | disposition home or self-care (01) | DRG 560 ==
LOC: INPGRE 06-21 10:36